=== PATIENT | female | born 1965 | race Caucasian/White ===

== ENCOUNTER 2017-02-07 08:46 | Emergency (ER) | payer OTHER ==
[2017-02-07 08:47] VITALS: BP 139/84; PULSE 88; RESP 16; O2SAT 100
--- NOTE | 2017-02-07 09:38 | PD ---
HPI Chief Complaint: Back/ Neck Pain or Injury Time Seen by Provider: 09:37 Travel History International Travel<30 days: No Contact w/Intl Traveler<30days: No Traveled to known affect area: No History of Present Illness HPI 51-year-old female history of left-sided sciatica presents to emergency room for evaluation of exacerbation of this. Patient states her last exacerbation was approximately 2 years ago. She is on vacation here. She does not recall any injury. No focal deficits or weakness. Pain is a intermittent sharp but constant dull left-sided pain in her buttock that radiates to her thigh. Denies saddle paresthesia or loss of bowel or bladder. No other symptoms to report. PFSH Past Medical History Medical History: Denies Significant Hx Diminished Hearing: No Immunizations Current: No Tetanus Vaccination: < 5 Years Influenza Vaccination: Yes ?: Not Past Surgical History Surgical History: No Previous Surgery Social History Alcohol Use: Yes (OCC) Tobacco Use: No Substance Use: No Allergies-Medications (Allergen,Severity, Reaction): Coded Allergies: No Known Allergies (Unverified , 02/07/17) Reported Meds & Prescriptions Reported Meds & Active Scripts Active Lortab (Hydrocodone-Acetaminophen) 5-325 Mg Tab 1 Tab PO Q6H PRN Ibuprofen 800 Mg Tab 800 Mg PO Q8H PRN Robaxin (Methocarbamol) 500 Mg Tab 500 Mg PO QID PRN Review of Systems Except as stated in HPI: all other systems reviewed are Neg Physical Exam Narrative GENERAL: Well-nourished, well-developed female patient, ambulatory no acute distress SKIN: Focused skin assessment warm/dry. HEAD: Normocephalic. EYES: No scleral icterus. No injection or drainage. NECK: Supple, trachea midline. No JVD or lymphadenopathy. CARDIOVASCULAR: Regular rate and rhythm without murmurs, gallops, or rubs. RESPIRATORY: Breath sounds equal bilaterally. No accessory muscle use. GASTROINTESTINAL: Abdomen soft, non-tender, nondistended. MUSCULOSKELETAL: No cyanosis, or edema. There is still elicited to palpation of the left sacral iliac joint. 5+ strength equal bilateral lower extremities. Sensation intact distal extremity. BACK: Nontender without obvious deformity. No CVA tenderness. Data Data Last Documented VS Vital Signs Date Time Temp Pulse Resp B/P Pulse Ox O2 Delivery O2 Flow Rate FiO2 7/13/17 08:47 88 16 139/84 100 Orders Dexamethasone Inj (Decadron Inj) (02/07/17 09:45) Orphenadrine Inj (Norflex Inj) (02/07/17 09:45) Splint Or Brace Apply/Monitor (02/07/17 09:38) Brace Quick Draw Corset (02/07/17 ) MDM Medical Decision Making Medical Screen Exam Complete: Yes Emergency Medical Condition: Yes Medical Record Reviewed: Yes Differential Diagnosis Sciatica versus lumbar strain versus discogenic pain versus radiculopathy Narrative Course 51-year-old female presents to the emergency department for evaluation of exacerbation of sciatica. Patient is placed in a quick draw back brace, counseling care. She is treated for pain. She is encouraged to return immediately with any acute worsening of symptoms. Diagnosis Primary Impression: Sciatica of left side Referrals: Primary Care Physician Patient Instructions: General Instructions, Sciatica (ED) Additional Instructions: Ice and/or warm moist heat may help to alleviate symptoms Brace for support. Do not wear this at all times as it may weaken her core muscles, worsening her back pain Follow-up with a primary care provider Return immediately with any acute worsening symptoms Med/Other Pt SpecificInfo: Prescription(s) given Scripts Hydrocodone-Acetaminophen (Lortab)5-325 Mg Tab1 Tab PO Q6H PRN (PAIN GREATER THAN 6) #6 TAB Ref 0 Prov:Elvia Zhang 02/07/17 Ibuprofen 800 Mg [id number] Mg PO Q8H PRN (Pain/Inflammation) #30 TAB Ref 0 Prov:Elvia Zhang 02/07/17 Methocarbamol (Robaxin)500 Mg [id number] Mg PO QID PRN (MUSCLE SPASM) #20 TAB Ref 0 Prov:Elvia Zhang 02/07/17 Disposition: 01 DISCHARGE HOME Condition: Stable Elvia Zhang Feb 07, 2017 09:38
[2017-02-07] MEDS ORDERED: IBUP800T23 PO (09:40)
[2017-02-07] MEDS ORDERED: HYDR-3533 PO (09:40)
[2017-02-07] MEDS ORDERED: ROBA500T PO (09:40)
[2017-02-07] MEDS ORDERED: ORPHENADRINE INJ 60 MG/2 ML AMP IM ONE (09:45)
[2017-02-07] MEDS ORDERED: DEXAMETHASONE SOD PHOS 20 MG/5 ML VIAL IM ONE (09:45)
== END 2017-02-07 10:29 | disposition home or self-care (01) ==
LOC: NEPK 08:46
DX: M54.32 Sciatica, left side (principal); Z79.899 Other long term (current) drug therapy
CPT/HCPCS: 96372; 99284; J1100; J2360; L0627